=== PATIENT | female | born 1965 ===

== ENCOUNTER 2021-05-11 15:11 | Inpatient (IN) | payer BC ==
[~2021-05-11] VITALS: Ht 177.8 cm; Wt 144.3 kg
[2021-05-11] VITALS (191 sets, daily range): BP systolic 147; BP diastolic 101; PULSE 76; TEMP 97.9; O2SAT 93–100
--- NOTE | 2021-05-11 16:00 | NUR ---
Pt requesting MD James to be pt's boots and shoes supervisor while here - pt states she is family friend of MD James. MD Paulette's Nurse Nury notified. MD Candice aware
[2021-05-11] MEDS ORDERED: ZESTRIL 5MG5 MG PO (16:14)
[2021-05-11] MEDS ORDERED: PROTONIX20 MG PO (16:15)
[2021-05-11] MEDS ORDERED: ONE-A-DAY ESSE1 EACH PO (16:16)
[2021-05-11] MEDS ORDERED: OSCAL 500 TAB500 MG PO (16:16)
[2021-05-11] MEDS ORDERED: CLARITIN 1010 MG/TAB PO (16:17)
[2021-05-11] MEDS ORDERED: VITAMIND3 5000 PO (16:18)
[2021-05-11 18:54] LABS: PROTHROMBIN TIME 11.6 SECONDS (9.7-12.8)
[2021-05-11 18:55] LABS: PARTIAL THROMBOPLASTIN TIME 54.7 SECONDS (26.0-37.0)
[2021-05-11 19:36] LABS: CHOLESTEROL RISK RATIO 3.2
--- NOTE | 2021-05-11 21:09 | NUR ---
Patient assessed around 1999. Alert and oriented x 4, and able to make needs known. Patient complaining of level 8 head ache. Educated that a common side effect of Nitro is headache. Has received PRN Acetaminophen, but did not help. Called [facility], and received order for PRN Ultram. Patient also requested something to help her sleep, as she usually takes Z-quil at home. Order received for Melatonin. Peripheral IV to left AC with Nitro and Heparin drip per orders. Will recheck HepXa at 0030, order is in. INT to right AC. Denies SOB and dyspnea, including with exertion. Respirations even and unlabored. HRR. Capillary refill less than 3 seconds. Non-tenting skin turgor. BSAx4. Abdomen soft and non-tender. 1+ edema BLE. Ambulated with stand by assist to bathroom. Gait steady. Denies dizzyness. Urine clear and yellow. Updated that cardiology will see her tomorrow, and there is a possibility that they will order a lexiscan or heart cath, so we will keep her NPO after midnight. Questions answered, and voiced understanding. Resting in bed with call light within reach. Voices no further questions, needs, or concerns at this time. Resting in bed with call light within reach.
[2021-05-11 22:41] LABS: HEMATOCRIT 37.7 % (37.0-47.0); HEMOGLOBIN 12.5 g/dl (12.5-16.0); MEAN CELL VOLUME 87 fl (80.0-100.0); MEAN CORPUSCULAR HEMOGLOBIN 29 pg (27.0-31.0); MEAN CORPUSCULAR HGB CONC 33 g/dl (33.0-37.0); MEAN PLATELET VOLUME 10.3 fl (7.4-10.4); PLATELET COUNT 259 K/mm3 (130-400); RED BLOOD COUNT 4.34 M/mm3 (4.10-5.30); REDCELL DISTRIBUTION WIDTH-CV 13.3 % (11.5-14.5)
--- NOTE | 2021-05-11 23:34 | NUR ---
Troponin back at 3.52. This is an increase from last result of 2.01. Called to [facility], and requested that cardiology be called. Call placed to Dr. Caldwell, who is clinical account liaison. No new orders at this time.
[2021-05-12] VITALS (643 sets, daily range): BP systolic 95–163; BP diastolic 57–110; PULSE 55–75; TEMP 97.5–98.3; O2SAT 76–100
--- NOTE | 2021-05-12 01:03 | NUR ---
Patient's HepXa is 0.28. This is patient's 2nd goal level on Heparin drip per protocol. Order placed to recheck in the morning with routine labs.
--- NOTE | 2021-05-12 01:58 | NUR ---
BP was continuing to increase to 160s/100s. Patient also complaining of some itching, and requested Benadryl. No rash/redness noted. Looked over med rec, and noted that patient's med rec stated that she takes 5 mg Lisinopril, but last fill was a few days ago, and was 20 mg. Patient stated she didn't know for sure how many mg she takes of the medication. Call placed to [facility]. New order for PRN Benadryl received. Also discussed BP. She recommended increasing the Nitroglycerin drip to help with the BP. Increased nitro drip, and given PRN Acetaminophen, as well as Benadryl.
[2021-05-12] MEDS ORDERED: PRINIVIL20 MG (02:26)
[2021-05-12 05:24] LABS: BASO # 0.1 (0.0-0.2); BASO % 0.8 % (0.0-2.0); EOS # 0.1 (0.0-0.7); EOS % 0.8 % (0-4.0); GRAN # 6.3 (1.4-6.5); GRAN % 73.2 % (42.2-75.2); HEMATOCRIT 37.8 % (37.0-47.0); HEMOGLOBIN 12.3 g/dl (12.5-16.0); LYMPH # 1.6 (1.2-3.4); LYMPH % 18.8 % (20.0-51.0); MEAN CELL VOLUME 88 fl (80.0-100.0); MEAN CORPUSCULAR HEMOGLOBIN 29 pg (27.0-31.0); MEAN CORPUSCULAR HGB CONC 33 g/dl (33.0-37.0); MONO # 0.5 (0.1-0.6); MONO % 6.2 % (1.7-9.3); PLATELET COUNT 231 K/mm3 (130-400); RED BLOOD COUNT 4.29 M/mm3 (4.10-5.30); REDCELL DISTRIBUTION WIDTH-CV 13.5 % (11.5-14.5)
[2021-05-12 05:34] LABS: CALCIUM 8.9 mg/dL (8.4-10.2); CREATININE, serum 0.64 (0.52-1.25); MAGNESIUM 1.8 mg/dL (1.6-2.3); POTASSIUM 4.2 mmol/L (3.4-5.0)
--- NOTE | 2021-05-12 05:41 | NUR ---
Patient's HepXa 0.27. Heparin drip continues to run at 1000 units/hr (10 ml/hr). Order placed to recheck tomorrow morning per protocol. Continues on Nitro drip. Titrated from 10 mcg/min to 30 mcg/min to help with blood pressure. Has denied having chest pain and discomfort. Only complaint of pain during the night was headache. Patient given PRN Ultram and Acetaminophen per orders. Patient has been NPO since midnight, but did take medications with sips of water. Voices no questions, needs, or concerns at this time. Resting in bed with call light within reach.
--- NOTE | 2021-05-12 09:33 | NUR ---
MD James in room
--- NOTE | 2021-05-12 11:21 | NUR ---
SEE MERGE DOCUMENTATION FOR MEDICATION ADMINISTRATION TIMES AND INTRA/POST PROCEDURE SEDATION ASSESSMENTS.
[2021-05-13] VITALS (374 sets, daily range): BP systolic 108–134; BP diastolic 65–89; PULSE 61–76; TEMP 98.1–98.4; O2SAT 86–100
[2021-05-13 06:50] LABS: BASO # 0.1 (0.0-0.2); EOS # 0.3 (0.0-0.7); EOS % 4.3 % (0-4.0); GRAN # 3.6 (1.4-6.5); GRAN % 53.1 % (42.2-75.2); HEMATOCRIT 38.5 % (37.0-47.0); HEMOGLOBIN 12.3 g/dl (12.5-16.0); LYMPH # 2.3 (1.2-3.4); LYMPH % 33.8 % (20.0-51.0); MEAN CELL VOLUME 90 fl (80.0-100.0); MEAN CORPUSCULAR HEMOGLOBIN 29 pg (27.0-31.0); MEAN CORPUSCULAR HGB CONC 32 g/dl (33.0-37.0); MEAN PLATELET VOLUME 9.7 fl (7.4-10.4); MONO # 0.5 (0.1-0.6); MONO % 7.7 % (1.7-9.3); PLATELET COUNT 228 K/mm3 (130-400); RED BLOOD COUNT 4.28 M/mm3 (4.10-5.30); REDCELL DISTRIBUTION WIDTH-CV 13.6 % (11.5-14.5)
[2021-05-13 07:02] LABS: CALCIUM 8.9 mg/dL (8.4-10.2); CREATININE, serum 0.76 (0.52-1.25); POTASSIUM 4.4 mmol/L (3.4-5.0)
--- NOTE | 2021-05-13 08:30 | NUR ---
Resting in bed; alert and oriented and cooperative during assessment. Denies any chest pain or shortness of breath. Reports a mild Headache/neckache. VS stable. Call light left within reach; will continue to monitor.
[2021-05-13] MEDS ORDERED: LIPITOR 80MG80 MG PO (13:07)
[2021-05-13] MEDS ORDERED: PLAVIX 75MG TAB75 MG PO (13:07)
[2021-05-13] MEDS ORDERED: ASPIRIN 81M81 MG/TA2 PO (13:08)
--- NOTE | 2021-05-13 14:21 | NUR ---
Patient discharged from ICU. Alert and oriented and in no distress upon discharge. MORE Kelly assisted patient out of the facility with her .
== END 2021-05-13 14:21 | disposition home or self-care (01) | DRG 247 ==
LOC: IMCU 15:11 → ICU 15:41
PROVIDERS: Internal Medicine
PROC: 4A023N7 Measurement of Cardiac Sampling and Pressure, Left Heart, Percutaneous Approach (ICD-10-PCS; principal; 2021-05-12)
PROC: B2111ZZ Fluoroscopy of Multiple Coronary Arteries using Low Osmolar Contrast (ICD-10-PCS; 2021-05-12)
PROC: 027034Z Dilation of Coronary Artery, One Artery with Drug-eluting Intraluminal Device, Percutaneous Approach (ICD-10-PCS; 2021-05-12)
DX: I21.4 Non-ST elevation (NSTEMI) myocardial infarction (principal); Z68.42 Body mass index [BMI] 45.0-49.9, adult; I10 Essential (primary) hypertension; I25.110 Atherosclerotic heart disease of native coronary artery with unstable angina pectoris; E11.9 Type 2 diabetes mellitus without complications; K21.9 Gastro-esophageal reflux disease without esophagitis; R51.9 Headache, unspecified; E66.9 Obesity, unspecified; Z98.84 Bariatric surgery status; Z87.891 Personal history of nicotine dependence
CPT/HCPCS: 99223-AI; 99232-AI; 99239; C1725; C1769; C1874; C1887; C9600; J0583; J1200; J1644; J2250; J3010; Q9967